=== PATIENT | female | born 1970 | race Caucasian/White ===

== ENCOUNTER 2019-10-02 23:24 | Emergency (ER) | payer MEDICAID, OTHER ==
[~2019-10-02] VITALS: Ht 162.6 cm; Wt 89.8 kg
[2019-10-03 00:01] LABS: Basophils # (auto) 0.1 uL; Mean Corpuscular Volume 59.5 fL (80.0-100.0); Monocytes # (auto) 0.9 uL; Neutrophils # (auto) 9.3 uL; Neutrophils % (auto) 74.1 % (37.0-80.0); White Blood Cell 12.6 10^3/uL (4.4-10.8)
[2019-10-03 00:02] LABS: Basophils % (auto) 0.9 % (0.0-2.0); Eosinophils # (auto) 0.5 uL; Eosinophils % (auto) 3.8 % (0.0-7.0); Hematocrit 27.4 % (41.0-53.0); Hemoglobin 8.3 g/dL (13.5-17.5); Lymphocytes # (auto) 1.7 uL; Lymphocytes % (auto) 13.9 % (10.0-50.0); Mean Corpuscular Hemoglobin 18.1 pg (28.0-32.0); Mean Corpuscular Hgb Conc. 30.3 g/dL (32.0-36.0); Monocytes % (auto) 7.3 % (0.0-12.0)
[2019-10-03 00:05] LABS: Platelet Count (auto) 245 10^3/uL (140-450); Red Cell Distribution Width 23.6 % (11.8-14.3)
[2019-10-03 00:17] LABS: INR 1.01 (0.9-1.15); Partial Thromboplastin Time 25.4 sec (23.64-32.05)
[2019-10-03 00:18] LABS: Alanine Aminotransferase 20 U/L (16-61); Albumin 3.3 g/dL (3.4-5.0); Anion Gap 9 (5-15); Aspartate Aminotransferase 9 U/L (15-37); BUN/Creatinine Ratio 18.6; Blood Urea Nitrogen 16 mg/dL (7-18); Calcium 7.8 mg/dL (8.5-10.1); Carbon Dioxide 22 mmol/L (21-32); Chloride 110 mmol/L (98-107); GFR African American 122 mL/min; GFR Non-African American 101 mL/min; Glucose 96 mg/dL (74-106); Potassium 3.7 mmol/L (3.5-5.1); Sodium 141 mmol/L (136-145)
[2019-10-03 00:23] LABS: Alkaline Phosphatase 83 U/L (45-117); Bilirubin, Total 0.2 mg/dL (0.2-1.0)
[2019-10-03] MEDS ORDERED: ALBUTEROL SULF 2.5 MG/0.5ML(0.5%) NEB SOLN NEB ONE (01:15)
[2019-10-03] MEDS ORDERED: cefTRIAXone 1GM/50ML D5W 50 ML IV ONE (01:15)
[2019-10-03] MEDS ORDERED: SODIUM CHLORIDE 0.9% 1,000 ML IV ONE (01:15)
[2019-10-03] MEDS ORDERED: methylPREDNISolone SOD SUCC 125 MG/2 ML VL IV ONE (01:15)
[2019-10-03 01:45] VITALS: BP 122/71
[2019-10-03] MEDS ORDERED: ACETAMINOPHEN 325 MG TAB PO ONE (02:15)
== END 2019-10-03 02:53 | disposition short-term general hospital (02) ==
LOC: ER 23:24 → EDSEX 23:24 → ER 10-03 02:53
DX: J18.1 Lobar pneumonia, unspecified organism (principal); J01.00 Acute maxillary sinusitis, unspecified; J45.901 Unspecified asthma with (acute) exacerbation; Z88.0 Allergy status to penicillin; Z88.6 Allergy status to analgesic agent
CPT/HCPCS: 36415; 71045; 80053; 83880; 84484; 85025; 85379; 85610; 85730; 87040; 87804; 93005; 94640; 96365; 96375; 99284; J0696; J2930; J7030; J7611

== ENCOUNTER 2023-08-02 11:42 | Inpatient (IN) | payer MEDICAID ==
[~2023-08-02] VITALS: Ht 162.6 cm; Wt 100.5 kg
[2023-08-02] MEDS ORDERED: ASPirin 325 MG TAB PO ONE (12:15)
[2023-08-02 13:18] LABS: Basophils # (auto) 0.1 10 ^3/uL (0-0.2); Basophils % (auto) 0.7 % (0.0-2.0); Eosinophils # (auto) 0.3 10 ^3/uL (0-0.8); Eosinophils % (auto) 3.8 % (0.0-7.0); Hematocrit 45.2 % (36.0-46.0); Hemoglobin 14.8 g/dL (12.2-16.2); Lymphocytes # (auto) 1.8 10 ^3/uL (0.4-5.4); Lymphocytes % (auto) 22.8 % (10.0-50.0); Mean Corpuscular Hemoglobin 29.1 pg (28.0-32.0); Mean Corpuscular Hgb Conc. 32.7 g/dL (32.0-36.0); Monocytes # (auto) 0.6 10 ^3/uL (0-1.3); Monocytes % (auto) 7.8 % (0.0-12.0); Neutrophils # (auto) 5.1 10 ^3/uL (1.6-8.6); Neutrophils % (auto) 64.9 % (37.0-80.0); Nucleated Red Blood Cells % 0.1 %; Red Blood Cells 5.08 10^6/uL (4.0-5.20); Red Cell Distribution Width 17.5 % (11.8-14.3); White Blood Cell 7.9 10^3/uL (4.4-10.8)
[2023-08-02 14:30] LABS: Alanine Aminotransferase 24 U/L (7-40); Alkaline Phosphatase 99 U/L (46-116); Anion Gap 8 (5-15); Aspartate Aminotransferase 25 U/L (13-40); BUN/Creatinine Ratio 18.1 (10.0-20.0); Blood Urea Nitrogen 13 mg/dL (9-23); Calcium 8.9 mg/dL (8.7-10.4); Carbon Dioxide 21 mmol/L (20-30); Chloride 110 mmol/L (98-107); Glucose 97 mg/dL (74-106); Lipase 31 U/L (12-53); Potassium 4.2 mmol/L (3.5-5.1); Sodium 139 mmol/L (136-145)
[2023-08-02 14:31] LABS: Albumin 4.4 g/dL (3.2-4.8); Bilirubin, Total 0.2 mg/dL (0.2-1.0); Total Protein 6.8 g/dL (5.7-8.2)
[2023-08-02] MEDS ORDERED: NITROGLYCERIN 0.4 MG SL TAB SL PRN (16:00)
[2023-08-02] MEDS ORDERED: ACETAMINOPHEN 325 MG TAB PO PRN (16:00)
[2023-08-02 17:55] LABS: Triglycerides 138 mg/dL (< 150)
[2023-08-02 17:56] LABS: LDL Cholesterol 163 mg/dL (< 100)
[2023-08-02 17:57] LABS: Cholesterol 224 mg/dL (< 200); HDL Cholesterol 49 mg/dL (40-59)
[2023-08-02 18:01] LABS: Magnesium 2.1 mg/dL (1.6-2.6)
[2023-08-02] MEDS: SODIUM CHLORIDE 0.9% 1,000 ML IV SCH (18:02)
[2023-08-02] MEDS: MORPHINE SULFATE 4 MG/ML SYR/VIAL IV PRN (18:08)
[2023-08-02 19:11] LABS: INR 1.04 (0.9-1.15); Prothrombin Time 10.9 sec (9.3-11.8)
[2023-08-02] MEDS ORDERED: ENOXAPARIN SOD 100 MG/1 ML SYRINGE SC SCH (22:00)
[2023-08-02 23:34] VITALS: PULSE 86; RESP 18; O2SAT 98
[2023-08-03] VITALS (7 sets, daily range): BP systolic 130–148; BP diastolic 69–80; PULSE 63–90; RESP 16–18; TEMP 98.1–98.6; O2SAT 96–100
[2023-08-03 00:05] LABS: Urine Bacteria NONE SEEN /hpf (None Seen); Urine Blood Negative /uL (Negative); Urine Clarity HAZY (Clear); Urine Color Yellow (Yellow); Urine Mucus FEW (None Seen); Urine Protein, UAD Negative (Negative); Urine Specific Gravity 1.028 (1.001-1.035); Urine Urobilinogen Normal (Negative); Urine WBC 4 /hpf (0 - 5)
[2023-08-03] MEDS: METOPROLOL TARTRATE 25 MG TAB PO SCH ×3 (00:07→22:59)
[2023-08-03] MEDS: ONDANSETRON HCL 4 MG/2 ML VIAL IV PRN ×2 (00:08→08:58)
[2023-08-03] MEDS: ATORVASTATIN 20 MG TAB PO SCH ×2 (00:08→22:58)
[2023-08-03] MEDS: MORPHINE SULFATE 4 MG/ML SYR/VIAL IV PRN ×3 (00:09→18:50)
[2023-08-03] MEDS: SODIUM CHLORIDE 0.9% 1,000 ML IV SCH (02:32)
[2023-08-03 07:12] LABS: Basophils # (auto) 0 10 ^3/uL (0-0.2); Basophils % (auto) 0.4 % (0.0-2.0); Eosinophils # (auto) 0.4 10 ^3/uL (0-0.8); Eosinophils % (auto) 3.5 % (0.0-7.0); Hematocrit 46.2 % (36.0-46.0); Lymphocytes # (auto) 1.9 10 ^3/uL (0.4-5.4); Lymphocytes % (auto) 17.6 % (10.0-50.0); Mean Corpuscular Hgb Conc. 32.4 g/dL (32.0-36.0); Mean Corpuscular Volume 89.7 fL (80.0-100.0); Monocytes # (auto) 0.8 10 ^3/uL (0-1.3); Monocytes % (auto) 7.2 % (0.0-12.0); Neutrophils # (auto) 7.6 10 ^3/uL (1.6-8.6); Neutrophils % (auto) 71.3 % (37.0-80.0); Red Blood Cells 5.16 10^6/uL (4.0-5.20); Red Cell Distribution Width 17.6 % (11.8-14.3); White Blood Cell 10.7 10^3/uL (4.4-10.8)
[2023-08-03 07:39] LABS: Alanine Aminotransferase 24 U/L (7-40); Albumin 4.5 g/dL (3.2-4.8); Alkaline Phosphatase 87 U/L (46-116); Anion Gap 7 (5-15); Aspartate Aminotransferase 17 U/L (13-40); BUN/Creatinine Ratio 13.9 (10.0-20.0); Blood Urea Nitrogen 11 mg/dL (9-23); Calcium 9.2 mg/dL (8.5-10.1); Carbon Dioxide 25 mmol/L (20-30); Chloride 108 mmol/L (98-107); Glucose 97 mg/dL (74-106); Potassium 3.7 mmol/L (3.5-5.1); Sodium 140 mmol/L (136-145)
[2023-08-03 07:40] LABS: Bilirubin, Total 0.4 mg/dL (0.2-1.0); Total Protein 7.2 g/dL (5.7-8.2)
[2023-08-03] MEDS: ASPirin 81 mg TAB PO SCH (10:17)
[2023-08-03] MEDS: DOCUSATE SOD 100 MG CAP PO SCH (10:17)
[2023-08-03] MEDS ORDERED: amLODIPine BESYLATE 5 MG TAB PO ONE (11:00)
[2023-08-03] MEDS ORDERED: PANTOPRAZOLE 40 MG TAB PO ONE (11:00)
[2023-08-03] MEDS ORDERED: ALBUTEROL MEDNEB 2.5 mg/3ml NEB NEB PRN (11:00)
[2023-08-03] MEDS: traMADol HCL 50 MG TAB PO PRN ×2 (11:54→22:59)
[2023-08-03] MEDS ORDERED: HYDR-4607 (16:49)
[2023-08-03] MEDS ORDERED: FLUT50SP NAS (16:49)
[2023-08-03] MEDS ORDERED: DIPH25CA66 PO (16:49)
[2023-08-03] MEDS ORDERED: CYCL-611 PO (16:49)
[2023-08-03] MEDS ORDERED: CETI-120 PO (16:49)
[2023-08-04 05:00] VITALS: BP 121/61; PULSE 73; RESP 17; TEMP 97.8; O2SAT 97
[2023-08-04 07:51] VITALS: O2SAT 97
[2023-08-04 08:00] VITALS: PULSE 84
[2023-08-04] MEDS: DOCUSATE SOD 100 MG CAP PO SCH (09:03)
[2023-08-04] MEDS: METOPROLOL TARTRATE 25 MG TAB PO SCH (09:03)
[2023-08-04] MEDS: traMADol HCL 50 MG TAB PO PRN (09:04)
[2023-08-04] MEDS: ASPirin 81 mg TAB PO SCH (09:04)
[2023-08-04] MEDS ORDERED: AML5T PO (09:55)
[2023-08-04] MEDS ORDERED: ATOR20TA50 PO (09:55)
[2023-08-04] MEDS ORDERED: METO25TA36 PO (09:55)
[2023-08-04] MEDS ORDERED: amLODIPine BESYLATE 5 MG TAB PO SCH (10:00)
[2023-08-04] MEDS ORDERED: PANTOPRAZOLE 40 MG TAB PO SCH (10:00)
[2023-08-04 10:40] VITALS: BP 139/75; PULSE 69
[2023-08-04 11:30] VITALS: BP 107/66; PULSE 74; RESP 17; TEMP 98.1; O2SAT 99
== END 2023-08-04 13:05 | disposition home or self-care (01) | DRG 199 ==
LOC: ER 11:42 → TELE 15:57 → TELE-CENTR 08-03 15:29
PROVIDERS: ADMIT Nurse Practitioner Family; ATTEND Internal Medicine
DX: I16.0 Hypertensive urgency (principal); E66.9 Obesity, unspecified; E78.5 Hyperlipidemia, unspecified; G89.29 Other chronic pain; I10 Essential (primary) hypertension; J45.909 Unspecified asthma, uncomplicated; Z88.0 Allergy status to penicillin; Z68.38 Body mass index [BMI] 38.0-38.9, adult; Z79.899 Other long term (current) drug therapy; Z88.6 Allergy status to analgesic agent
CPT/HCPCS: 36415; 71045; 76705; 80053; 80061; 81001; 83690; 83735; 84484; 85025; 85379; 85610; 93005; 93306; 96374; G0378; J2405